=== PATIENT | female | born 1945 | race Caucasian/White ===

== ENCOUNTER 2020-06-15 09:07 | Outpatient (CLI) | payer MEDICARE, SELFPAY ==
[2020-06-15 16:42] LABS: Anion Gap 5 mmol/L (8-16); Blood Urea Nitrogen 23 mg/dL (7-17); Calcium 9.6 mg/dL (8.4-10.2); Carbon Dioxide 30 mmol/L (22-30); Chloride 102 mmol/L (98-107); Estimated Glomerular Filt Rate 54; Glucose 127 mg/dL (65-105); Potassium 5.2 mmol/L (3.4-5.0); Sodium 137 mmol/L (137-145)
== END 2020-06-15 09:08 | disposition home or self-care (01) ==
LOC: ANHLAB 09:10
PROVIDERS: PCP Family Medicine; Visit Provider Internal Medicine Hematology & Oncology
DX: I10 Essential (primary) hypertension (principal)
CPT/HCPCS: 36415; 80048

== ENCOUNTER → 2021-02-01 09:45 | Outpatient (CLI) | payer MEDICARE, SELFPAY ==
--- NOTE | ~2021-02-01 | XR_ITS ---
XR lumbar spine 2-3V DATE: 02/01/2021 10:09 INDICATION: Low back pain TECHNIQUE: AP, lateral, coned lateral lumbosacral views COMPARISON: 02/24/2016 MRI lumbar spine 12/25/2015 lumbar spine FINDINGS: There is prominent diffuse osteopenia. There is a transitional lumbosacral vertebra sacralization on the left. No fracture or bone destruction or spondylolisthesis is evident. The lumbar pedicles are intact. The sacroiliac joints appear normal. IMPRESSION: Prominent diffuse osteopenia Transitional lumbosacral vertebra sacralization on the left Reviewed, dictated and finalized at location A.
== END ==
PROVIDERS: Visit Provider Family Medicine
DX: M85.88 Other specified disorders of bone density and structure, other site (principal)
CPT/HCPCS: 72100

== ENCOUNTER → 2021-08-13 02:37 | Outpatient (CLI) | payer MEDICARE, SELFPAY ==
[2021-08-13 17:01] LABS: SARS-CoV-2 RNA PCR Negative
== END ==
PROVIDERS: PCP Family Medicine; Visit Provider Family Medicine
DX: R05.9 Cough, unspecified (principal); Z20.822 Contact with and (suspected) exposure to COVID-19
CPT/HCPCS: C9803; U0003; U0005

== ENCOUNTER 2021-09-06 14:04 | Outpatient (CLI) | payer MEDICARE, SELFPAY ==
--- NOTE | ~2021-09-06 | XR_ITS ---
EXAMINATION: XR chest 2V DATE: 09/06/2021 14:39 INDICATION: Cough, unspecified. TECHNIQUE: Frontal and lateral views of the chest were obtained. COMPARISON: Chest 2 views 03/09/2018, chest CT 01/18/2005 FINDINGS: The chest demonstrates clear lungs without pneumonia, pleural effusion, or pneumothorax. Th e heart size is normal. IMPRESSION: 1. No acute cardiopulmonary disease. Reviewed, dictated and finalized at location B. ECTOR RAW QUARTZ
== END 2021-09-06 14:05 | disposition home or self-care (01) ==
PROVIDERS: PCP Family Medicine; Visit Provider Family Medicine
DX: R05.9 Cough, unspecified (principal)
CPT/HCPCS: 71046